=== PATIENT | female | born 1955 | race Native Hawaiian/Other Pacific Islander ===

== ENCOUNTER 2017-05-16 15:30 | Outpatient (CLI) | payer OTHER | END 2017-05-16 19:42 | disposition home or self-care (01) | LOC: RESP 15:30 | DX: J44.9 Chronic obstructive pulmonary disease, unspecified (principal) | CPT/HCPCS: 94640; 94664 ==

== ENCOUNTER 2018-07-31 14:09 | Inpatient (IN) | payer OTHER ==
[~2018-07-31] VITALS: Ht 160 cm; Wt 59.5 kg
[2018-07-31 14:09] VITALS: BP 148/75; TEMP 97.7
[2018-07-31] MEDS ORDERED: ESCITALOPRAM20 MG PO (14:26)
[2018-07-31] MEDS ORDERED: BELBUCA150 MCG BU ×2 (14:26→22:15)
[2018-07-31] MEDS ORDERED: PROVENTIL108 MCG/AC INH (14:29)
[2018-07-31] MEDS ORDERED: GABA400C2 PO (14:29)
[2018-07-31] MEDS ORDERED: LEVE500T5 PO (14:30)
[2018-07-31] MEDS ORDERED: HYDR-3182 PO (14:31)
[2018-07-31] MEDS ORDERED: CALAN SR120 MG PO (14:32)
[2018-07-31] MEDS ORDERED: PHENOBARB32.4 MG PO (14:33)
[2018-07-31] MEDS ORDERED: SODIUM BICAR650 MG PO (14:35)
[2018-07-31] MEDS ORDERED: REMERON SOLTAB30 MG PO (14:36)
[2018-07-31] MEDS ORDERED: DONE5TAB PO (14:36)
[2018-07-31] MEDS ORDERED: CLON0.5T36 PO (14:37)
[2018-07-31] MEDS ORDERED: KLOR-CON M1010 MEQ PO (14:38)
[2018-07-31] MEDS ORDERED: LIPITOR40 MG PO (14:38)
[2018-07-31] MEDS ORDERED: PRAVACHOL20 MG PO (14:39)
[2018-07-31] MEDS ORDERED: PEPCID40 MG PO (14:40)
[2018-07-31] MEDS ORDERED: MONTELUKAST SOD10 MG PO (14:40)
[2018-07-31] MEDS ORDERED: FLOVENT HF110 MCG/AC INH ×2 (14:41→22:33)
[2018-07-31 14:45] LABS: PLATELET COUNT 216 K/uL (152-353)
[2018-07-31 14:55] LABS: POTASSIUM 3.7 mmol/L (3.6-5.2)
[2018-07-31 16:21] LABS: PARTIAL THROMBOPLASTIN TIME 23.6 SECONDS (24.5-33.6)
[2018-07-31 19:59] VITALS: BP 122/54; TEMP 98.4; Ht 160 cm; Wt 59.5 kg
[2018-07-31] MEDS ORDERED: [UNRECOGNIZED DRUG - OTHER] PO (22:32)
[2018-07-31] MEDS ORDERED: LEVAQUIN250 MG PO (22:34)
[2018-07-31] MEDS ORDERED: MILLIPRED DP5 MG PO (22:36)
[2018-08-01] VITALS: BP 117/53; TEMP 97.7
[2018-08-01 04:00] VITALS: BP 157/72; TEMP 98.1
[2018-08-01 08:00] VITALS: BP 155/65; TEMP 98
[2018-08-01 12:00] VITALS: BP 122/53; TEMP 97.7
== END 2018-08-01 14:15 | disposition short-term general hospital (02) | DRG 281 ==
LOC: ED 14:09 → MED/SURG 19:28
PROVIDERS: Emergency Medicine; ADMIT Internal Medicine
DX: I21.4 Non-ST elevation (NSTEMI) myocardial infarction (principal); G40.802 Other epilepsy, not intractable, without status epilepticus; J44.1 Chronic obstructive pulmonary disease with (acute) exacerbation; R07.89 Other chest pain; I10 Essential (primary) hypertension
CPT/HCPCS: 36415; 36600; 80053; 82550; 82553; 82805; 84484; 85027; 85379; 85610; 85730; 93005; 94640; 94664; 94760; 96374; 99284; J1650; J2930; Q9963

== ENCOUNTER 2018-08-01 13:20 | Outpatient (CLI) | payer OTHER ==
[~2018-08-01 13:20] MED LIST: BELBUCA150 MCG BU; CALAN SR120 MG PO; CLON0.5T36 PO; DONE5TAB PO; ESCITALOPRAM20 MG PO; FLOVENT HF110 MCG/AC INH; GABA400C2 PO; HYDR-3182 PO; KLOR-CON M1010 MEQ PO; LEVAQUIN250 MG PO; LEVE500T5 PO; LIPITOR40 MG PO; MILLIPRED DP5 MG PO; MONTELUKAST SOD10 MG PO; PEPCID40 MG PO; PHENOBARB32.4 MG PO; PRAVACHOL20 MG PO; PROVENTIL108 MCG/AC INH; REMERON SOLTAB30 MG PO; SODIUM BICAR650 MG PO; [UNRECOGNIZED DRUG - OTHER] PO
== END 2018-08-01 14:30 | disposition short-term general hospital (02) ==
LOC: AMB 13:20
DX: I50.9 Heart failure, unspecified (principal); R06.02 Shortness of breath; R10.32 Left lower quadrant pain
CPT/HCPCS: A0425; A0427

== ENCOUNTER 2020-11-30 15:38 | Observation (INO) | payer OTHER ==
[2020-11-30] VITALS (13 sets, daily range): BP systolic 87–121; BP diastolic 31–65; TEMP 96.6
[~2020-11-30] VITALS: Ht 157.5 cm; Wt 66.7 kg
[2020-11-30 16:51] LABS: PLATELET COUNT 393 K/uL (152-353)
[2020-11-30 16:54] LABS: POTASSIUM 3.9 mmol/L (3.6-5.2)
[2020-12-01] MEDS ORDERED: NEXIUM40 M1 PO (01:49)
[2020-12-01] MEDS ORDERED: CARV3.12 PO (01:50)
[2020-12-01] MEDS ORDERED: PANTOPRAZOLE 40MG TA PO (01:52)
[2020-12-01] MEDS ORDERED: FERROUS SULF325 M1 PO (01:53)
[2020-12-01] MEDS ORDERED: EZET10TA13 PO (02:01)
[2020-12-01] MEDS ORDERED: CLOP75TA2 PO (02:03)
[2020-12-01] MEDS ORDERED: ASA LOW DOSE81 MG PO (02:04)
[2020-12-01] MEDS ORDERED: NITRO-DUR0.4 MG/HR SL (02:07)
[2020-12-01] MEDS ORDERED: LOPERAMIDE2 MG PO (02:09)
[2020-12-01] MEDS ORDERED: IPRA18AE INH (02:26)
[2020-12-01 04:00] VITALS: BP 126/66; TEMP 98.9
[2020-12-01 04:25] VITALS: BP 158/69; TEMP 97.7; Ht 157.5 cm; Wt 66.7 kg
--- NOTE | 2020-12-01 04:47 | NUR ---
LATE ENTRY 0130 RESPIRATORY AT BEDSIDE, O2 CHANGED FROM NC TO VENTI MASK AT 40%
--- NOTE | 2020-12-01 06:35 | NUR ---
PATIENT WAS HELPED TO THE BSC. THE PATIENT IS WEAK AND SOB. PATIENT WAS HELPED BACK TO THE BED . PATIENT READJUSTED AND HER O2 IS WNL
[2020-12-01 07:37] LABS: PLATELET COUNT 361 K/uL (152-353)
[2020-12-01 07:55] LABS: POTASSIUM 3.8 mmol/L (3.6-5.2)
[2020-12-01 08:00] VITALS: BP 128/48; TEMP 98.6
--- NOTE | 2020-12-01 08:38 | NUR ---
PT WAS ON 40% VM UPON RT ARRIVAL. POST NEB TX, RT TRIED 4LPM NC ON PT. SPO2 AT 96%, DECREASED PT TO 3LPM NC AT 32%, SPO2 MAINTAINING AT 95%. WILL CONTIUNE TO MONITOR PT AND WEAN TOLERABLE.
--- NOTE | 2020-12-01 09:00 | NUR ---
IN PT RM DUE TO INJECTION SITE ON LLQ BLEEDING, GAUZE THAT IS IN PLACE IS SOAKED WITH BLOOD, GAUZE REMOVED AND SITE CLEANED, REPLACED WITH GAUZE AND TEGADERM, DR. HENDRIX NOTIFIED OF LOVONOX INJECTION SITE CONTINUING TO BLEED, DR. HENDRIX ORDERS TO DC LOVONOX AND TO APPLY PRESSURE DRESSING TO AREA, NO FURTHER ORDERS GIVEN
--- NOTE | 2020-12-01 09:35 | NUR ---
6 MIN WALK TEST COMPLETED. NONAMBULATING SPO2 AT 87%. PLACED PT BACK ON 2LPM NC AT 28%, SPO2 AT 91%
[2020-12-01 12:00] VITALS: BP 126/59; TEMP 97.4
--- NOTE | 2020-12-01 16:00 | NUR ---
PT AND FAMILY GIVEN DC INSTRUCTIONS AND EXPLAINED TO PT AND FAMILY, PT AND FAMILY VERBALIZED UNDERSTANDING, FOLLOWUP APPT MADE WITH DR. WEBB, PT'S MEDICAL RECORD SENT TO [facility] IN [place] AND THEY WILL REVIEW AND CALL PT WITH APPT. DATE AND TIME, IV REMOVED WITH CATHETER INTACT, ORDER GIVEN FOR WALKER, PT BEING DISCHARGED HOME WITH PORTABLE O2
--- NOTE | 2020-12-01 16:15 | NUR ---
PT DC VIA WHEELCHAIR WITH FAMILY BY HER SIDE, BELONGINGS IN HAND AND PORTABLE O2, NAD NOTED, DC TO PERSONAL VEHICLE
== END 2020-12-01 16:41 | disposition home or self-care (01) ==
LOC: ED 15:38 → MED/SURG 19:40
PROVIDERS: Family Medicine; Internal Medicine Endocrinology, Diabetes & Metabolism; ADMIT Internal Medicine; ATTEND Internal Medicine
DX: J96.01 Acute respiratory failure with hypoxia (principal); J44.1 Chronic obstructive pulmonary disease with (acute) exacerbation; R91.8 Other nonspecific abnormal finding of lung field; I10 Essential (primary) hypertension; E78.49 Other hyperlipidemia; G89.4 Chronic pain syndrome; K21.9 Gastro-esophageal reflux disease without esophagitis; I25.10 Atherosclerotic heart disease of native coronary artery without angina pectoris; F41.8 Other specified anxiety disorders
CPT/HCPCS: 36600; 80048; 80053; 82805; 85027; 87070; 87077; 87186; 87205; 87502; 87635; 94640; 94664; 94760; 96365; 96372; 96375; 99220; 99284; G0378; J0696; J1650; J1956; J2175; J2405; J2920; U0003

== ENCOUNTER 2021-01-05 15:14 | Outpatient (CLI) | payer OTHER ==
[~2021-01-05 15:14] MED LIST changes: +ASA LOW DOSE81 MG PO; +CARV3.12 PO; +CLOP75TA2 PO; +EZET10TA13 PO; +FERROUS SULF325 M1 PO; +IPRA18AE INH; +LOPERAMIDE2 MG PO; +NEXIUM40 M1 PO; +NITRO-DUR0.4 MG/HR SL; +PANTOPRAZOLE 40MG TA PO
[2021-01-05 16:12] LABS: POTASSIUM 4.4 mmol/L (3.6-5.2)
[2021-01-05 16:48] LABS: PLATELET COUNT 338 K/uL (152-353)
== END 2021-01-05 23:00 | disposition home or self-care (01) ==
LOC: LABW 15:14
PROVIDERS: ATTEND Internal Medicine Cardiovascular Disease
DX: G40.209 Localization-related (focal) (partial) symptomatic epilepsy and epileptic syndromes with complex partial seizures, not intractable, without status epilepticus (principal); C44.311 Basal cell carcinoma of skin of nose; F02.80 Dementia in other diseases classified elsewhere, unspecified severity, without behavioral disturbance, psychotic disturbance, mood disturbance, and anxiety; G40.909 Epilepsy, unspecified, not intractable, without status epilepticus; I70.213 Atherosclerosis of native arteries of extremities with intermittent claudication, bilateral legs; Z68.1 Body mass index [BMI] 19.9 or less, adult; Z68.20 Body mass index [BMI] 20.0-20.9, adult; E78.2 Mixed hyperlipidemia; I25.10 Atherosclerotic heart disease of native coronary artery without angina pectoris; I82.502 Chronic embolism and thrombosis of unspecified deep veins of left lower extremity; Z95.5 Presence of coronary angioplasty implant and graft; K21.9 Gastro-esophageal reflux disease without esophagitis; Z68.23 Body mass index [BMI] 23.0-23.9, adult; Z79.899 Other long term (current) drug therapy; R06.02 Shortness of breath
CPT/HCPCS: 36415; 80053; 80061; 80185; 82306; 82542; 82607; 82746; 83036; 83540; 83735; 83880; 84443; 85027

== ENCOUNTER → 2021-01-19 | Outpatient (CLI) | payer OTHER | LOC: RESP 10-14 14:00 | PROVIDERS: ATTEND Specialist | DX: G40.209 Localization-related (focal) (partial) symptomatic epilepsy and epileptic syndromes with complex partial seizures, not intractable, without status epilepticus (principal) ==

== ENCOUNTER 2022-08-29 16:30 | Emergency (ER) | payer OTHER ==
[~2022-08-29] VITALS: Ht 157.5 cm; Wt 63.5 kg
[2022-08-29 17:40] LABS: PLATELET COUNT 264 K/uL (152-353)
[2022-08-29 17:48] LABS: POTASSIUM 5.5 mmol/L (3.6-5.2)
[2022-08-29 18:16] LABS: PARTIAL THROMBOPLASTIN TIME 29.2 SECONDS (23.9-36.7)
[2022-08-29 21:57] VITALS: BP 118/62; TEMP 98.2
== END 2022-08-29 21:57 | disposition home or self-care (01) ==
LOC: ED 16:30
PROVIDERS: Emergency Medicine
DX: J44.1 Chronic obstructive pulmonary disease with (acute) exacerbation (principal); E87.5 Hyperkalemia
CPT/HCPCS: 80053; 82550; 84484; 85027; 85610; 85730; 93005; 94664; 96372; 99283; J2930